=== PATIENT | female | born 1955 | race Caucasian/White ===

== ENCOUNTER 2023-05-09 16:18 | Emergency (ER) | payer MEDICARE ==
[2023-05-09 17:24] LABS: ALT (SGPT) 11 U/L (8-55); AST (SGOT) 18 U/L (5-34); Albumin 4.2 g/dL (3.4-4.8); Alkaline Phosphatase 120 U/L (40-110); Anion Gap 18 mmol/L (10-20); BUN (Urea Nitrogen) 13 mg/dL (9.8-20.1); Bilirubin, Total 0.4 mg/dL (0.2-1.2); Calc. Creatinine Clearance 0 mL/min (70-130); Calcium 8.9 mg/dL (7.8-10.44); Carbon Dioxide 18 mmol/L (23-31); Chloride 106 mmol/L (98-107); Estimated GFR 75; Globulin 3.2 g/dL (2.4-3.5); Glucose 90 mg/dL (80-115); Lipase 36 U/L (8-78); Potassium 3.7 mmol/L (3.5-5.1); Protein, Total 7.4 g/dL (5.8-8.1); Sodium 138 mmol/L (136-145)
[2023-05-09 17:26] LABS: #Eosinphils 0.1 10x3/uL (0.0-0.5); #Monocytes 0.8 10x3/uL (0.0-1.1); #Neutrophils 2.5 10x3/uL (1.5-8.4); %Basophils 0.7 % (0.0-2.0); %Eosinophils 2.2 % (0.0-6.0); %Lymphocytes 39.4 % (18.0-47.0); %Monocytes 13.1 % (0.0-10.0); %Neutrophils 43.7 % (40.0-75.0); Hematocrit 41.4 % (34.9-44.5); Hemoglobin 13.3 g/dL (12.0-15.5); Mean Corpuscular HGB CONC 32.1 g/dL (32.0-36.0); Mean Platelet Volume 10.6 fl (7.4-10.4); Platelet Count 406 10x3/uL (150-450); RBC Distribution Width 14.8 % (11.5-14.5); Red Blood Cell (RBC) Count 5.11 10x6/uL (3.90-5.03); White Blood Cell (WBC) Count 5.8 10x3/uL (3.5-10.5)
== END 2023-05-09 18:40 | disposition home or self-care (01) ==
LOC: CSHERS 16:18
DX: K44.9 Diaphragmatic hernia without obstruction or gangrene (principal); K82.8 Other specified diseases of gallbladder; R79.89 Other specified abnormal findings of blood chemistry
CPT/HCPCS: 74177; 80053; 83690; 85025; 93005